=== PATIENT | female | born 1970 | race Caucasian/White ===

== ENCOUNTER 2016-11-11 19:48 | Inpatient (IN) ==
[2016-11-11 20:18] LABS: MANUAL DIFF NEEDED? NO
[2016-11-11 20:18] LABS: URINE CULTURE NEEDED? NO; URINE MICRO REVIEW NEEDED? NO; URINE SOURCE CLEAN CATCH
[2016-11-11] MEDS ORDERED: TYLENOL PO ONE (20:22)
[2016-11-11 20:23] LABS: BASO% 0.2 % (0.0-0.8); EOS# 0.05 X1000 (0.0-0.7); EOS% 0.4 % (0.0-10.0); HEMATOCRIT 35.5 % (37.0-47.0); HEMOGLOBIN 11.9 g/dL (12.0-16.0); IMM GRAN# 0.09 X1000 (0.0-0.04); IMM GRAN% 0.7 % (0.0-0.5); LYMPH# 1.36 X1000 (1.2-3.4); LYMPH% 10.2 % (20.5-51.1); MCH 26.6 PG (27-31); MCHC 33.5 g/dL (33-37); MCV 79.4 FL (81-99); MONO# 1.22 X1000 (0.11-0.59); MONO% 9.1 % (1.7-9.3); MPV 8.5 FL (7.4-10.4); NEUT% 79.4 % (42.2-75.2); PLT 587 X1000 (130-400); RBC 4.47 XMIL (4.2-5.4)
[2016-11-11 20:27] LABS: BILIRUBIN URINE NEGATIVE (NEGATIVE); BLOOD URINE NEGATIVE (NEGATIVE); COLOR YELLOW; GLUCOSE URINE NEGATIVE (NEGATIVE); LEUKOCYTES URINE NEGATIVE (NEGATIVE); NITRITE URINE NEGATIVE (NEGATIVE); PROTEIN URINE NEGATIVE (NEGATIVE); SP GRAVITY URINE 1.007; TURBIDITY URINE CLEAR (CLEAR); UROBILINOGEN URINE NORMAL (NORMAL)
[2016-11-11 20:28] LABS: UR EPITHELIAL CELLS <10 /HPF (<10); URINE BACTERIA NEGATIVE /HPF; URINE RBC <10 /HPF (<10); URINE WBC <10 /HPF (<10)
[2016-11-11 20:47] LABS: AGAP 16; ALBUMIN 3.7 g/dL (3.5-5.0); ALKALINE PHOSPHATASE 70 U/L (32-104); BUN 8 mg/dL (8-22); CALCIUM 9.1 mg/dL (8.8-10.2); CHLORIDE 93 mmol/L (98-107); COSMO 269; GOT 9 U/L (10-30); GPT 14 U/L (10-36); SODIUM 133 mmol/L (136-145); TCO2 24 mmol/L (25-35); TOTAL BILIRUBIN 0.33 mg/dL (0.20-1.00); TOTAL PROTEIN 7.8 g/dL (6.3-8.3)
--- NOTE | 2016-11-11 21:00 | PROVIDER DOCUMENTATION ---
This chart was entered by Vi Davila Scribe, acting as scribe for Esau Contreras PA. HPI-Abdominal Pain/GI Problem - General Chief Complaint: Post Op Complaint Stated Complaint: POST OP COMPLAINT, FEVER Time Seen by Provider: 11/11/16 20:22 Source: patient Allergies/Adverse Reactions: Patient Allergies Allergy/AdvReac Type Severity Reaction Status Date / Time oxycodone HCl * Allergy ITCHING Verified 11/11/16 20:03 [From Percocet] Home Medications: Home Medication List Medication Instructions Recorded Confirmed Last Taken Type LISINOpril [Prinivil] 5 mg PO DAILY 05/20/16 11/11/16 11/11/16 History Metformin [Glucophage] 500 mg PO BID CC 10/28/16 11/11/16 11/11/16 History Multivitamin with Minerals [One 1 each PO DAILY 10/28/16 11/11/16 11/11/16 History Daily Adults] Hydrocodone/Acetaminophen 1 tab PO Q6HR PRN 11/11/16 11/11/16 11/11/16 History [Hydrocodon-Acetaminophn 10-325] Sulfamethoxazole/Trimethoprim 1 tab PO BID 11/11/16 11/11/16 11/11/16 History [Bactrim Ds Tablet] - History of Present Illness-ABD Nature of Presenting Problems: 46 Y/O F presents to ED with Post Op C/o. Pt presents to ED with ABD pain, due to a ventral hernia surgery on November 01 which was done by . Pt had to drain the fluid this past Friday. States chills, hot, N, poor appetite. States fever 102.7 noted today. Pt c/o of N denies V/D. Abdominal Pain Onset Location: reports: RUQ, RLQ Pain Radiation: reports: no radiation Quality of Pain: reports: aching Severity in ED: reports: moderate Onset/Duration: reports: this evening Timing: reports: still present Activities at Onset: reports: none Associated Symptoms: reports: fatigue, fever/chills, nausea, weakness. denies: cough, diarrhea, headaches, sinus congestion/drainage Review of Systems - Adult - REVIEW OF SYSTEMS - ADULT Constitutional: reports: chills, fever Eyes: reports: no symptoms reported Ears, Nose, Mouth & Throat: reports: no symptoms reported Cardiovascular: denies: chest pain Respiratory: denies: cough, shortness of breath Gastrointestinal: reports: abdominal pain, nausea, poor appetite. denies: diarrhea, vomiting Genitourinary: reports: no symptoms reported Musculoskeletal: reports: no symptoms reported Integumentary: reports: no symptoms reported Neurological: reports: no symptoms reported Psychiatric: reports: no symptoms reported Endocrine: reports: no symptoms reported Hematologic/Lymphatic: reports: no symptoms reported Allergic/Immunologic: reports: no symptoms reported All Other Systems: Reviewed and Negative Past History - Adult - PAST MEDICAL HISTORY-ADULT Review of Records: reports: Old Records Reviewed, Nursing Assessment Review, Medications Reviewed, Social history reviewed & non-contributory. Physical Exam-General - CONSTITUTIONAL General Appearance: alert, no apparent distress, obese - EYES Eyes: PERRL/EOMI, pink conjunctivae - HEAD, EARS, NOSE, MOUTH & THROAT HENMT: normocephalic/atraumatic, moist mucous membranes, normal ENT inspection, TMs normal, pharynx normal - NECK Neck: non-tender, full range of motion, supple, normal inspection - RESPIRATORY Respiratory: chest non-tender, lungs clear, normal breath sounds - CARDIOVASCULAR Cardiovascular: normal peripheral pulses, regular rate, rhythm - GASTROINTESTINAL (ABDOMEN) Abdominal Exam: tenderness (rlq), mass (RLQ (Firm)), other (incision noted to LLQ, Clear drainage from lower staple in lower ABD) - LYMPHATIC Lymphatic: no adenopathy - MUSCULOSKELETAL Extremity: normal range of motion, normal gait - SKIN Integumentary: normal color, normal turgor - PSYCHIATRIC Psych/Mental Status: normal mood/affect, normal thought content, normal thought process, oriented x 3 Progress - PLAN OF CARE/RESULTS Progress/Plan/Lab Results: Vital Signs - 8 hr 11/11/16 20:06 Temperature 100.3 F H Pulse Rate 139 H Respiratory Rate 19 Blood Pressure 155/90 O2 Sat by Pulse Oximetry 98 Laboratory Results - last 24 hr 11/11/16 11/11/16 20:06 20:13 WBC 13.34 H RBC 4.47 Hgb 11.9 L Hct 35.5 L MCV 79.4 L MCH 26.6 L MCHC 33.5 RDW Std Deviation 14.4 Plt Count 587 H MPV 8.5 Immature Gran % (Auto) 0.7 H Neut % (Auto) 79.4 H Lymph % (Auto) 10.[address] [place] % (Auto) 9.1 Eos % (Auto) 0.4 Baso % (Auto) 0.2 Immature Gran # (Auto) 0.09 H Neut # (Auto) 10.59 H Lymph # (Auto) 1.36 [place] # (Auto) 1.22 H Eos # (Auto) 0.05 Baso # (Auto) 0.03 Urine Source CLEAN CATCH Urine Color YELLOW Urine Turbidity CLEAR Urine pH 7.0 Ur Specific [place] 1.007 Urine Protein NEGATIVE Ur Glucose (Stick) NEGATIVE Ur Ketones (Stick) NEGATIVE Urine Blood NEGATIVE Urine Nitrite NEGATIVE Urine Bilirubin NEGATIVE Urobilinogen Dipstick NORMAL Urine Leukocytes NEGATIVE Urine WBC (Auto) <10 Urine RBC (Auto) <10 U Epithel Cells (Auto) <10 Urine Bacteria (Auto) NEGATIVE Orders Category Date Time Status CHEST-2 VIEWS [RAD] Stat Exams 11/11/16 20:[address] ABD/PELVIS W/ IV CONT ONLY [CT] Stat Exams 11/11/16 20:20 Ordered ACETAMINOPHEN [TDM] Stat Lab 11/11/16 20:06 Received CBC WITH ELECTRONIC DIFF [HEME] Stat Lab 11/11/16 20:06 Completed CMP [COMPREHENSIVE METABOLIC PANEL] [CHEM] Stat Lab 11/11/16 20:06 Received URINALYSIS W/POSS RFLX CULT [URINALYSIS] Stat Lab 11/11/16 20:13 Completed Acetaminophen [Tylenol] Med 11/11/16 20:22 Discontinued 650 mg PO NOW ONE Result Diagrams: 11/11/16 20:06 11/11/16 20:06 - CT/MRI 1 CT Study: Abdomen, Pelvis Impression: Abnormal (Large abscess in ant abd - radiology) - CONSULTS/PCP/HOSPITALIST Notification #1 *Consult/PCP/Hospitalist*: Dr. Hoang (General Surgery) Time Discussed: 22:18 Reason/Comments: Admit to Dr. Hernandez's service. Give Zosyn and normal saline. Departure - Departure Time of Disposition Decision: 22:17 DIAGNOSIS: Subcutaneous abscess Qualifiers: Site of cutaneous abscess: trunk Site of cutaneous abscess of trunk: abdominal wall Qualified Code(s): L02.211 - Cutaneous abscess of abdominal wall Disposition: ADMITTED INPATIENT 09 Certified Medical Emergency: Emergent Condition: Stable Referrals and Follow-Ups: None,PCP [Primary Care Provider] - - Critical Care Note This patient required my direct & personal management of CC.: No Attestation - Physician/ KEVIN Attestation Patient care was provided by Advanced Practice Provider:: Yes Advanced Practice Provider:: Esau Contreras Advanced Practice Provider documentation review:: The Mid-level provider documentation, treatment plan and medical decision making was reviewed by the physician who agrees with all treatment and medical decision making by the MLP. This chart was documented by the indicated scribe, (Vi Davila Scribe) and accurately reflects the services I performed and decisions made by me, Esau Contreras PA, as attested by the provider's signature.
--- NOTE | 2016-11-11 21:01 | Diag Imaging Result Doc PS360 ---
EXAM: CHEST-2 VIEWS HISTORY: POST OP FEVER TECHNIQUE: COMPARISON: None. FINDINGS: The lungs are well expanded. The heart is not enlarged. The vessels are not distended. There are no infiltrates. No pleural effusions. IMPRESSION: No acute abnormality. Electronically signed by Luan Guadalupe 11/11/2016 8:59 PM
--- NOTE | 2016-11-11 21:48 | Diag Imaging Result Doc PS360 ---
EXAM: CT ABD/PELVIS W/ IV CONT ONLY HISTORY: P OP FEVER ABD PAIN. TECHNIQUE: Dose reduction protocol COMPARISON: 10/04/2016 FINDINGS: There is fatty infiltration of the liver. Normal spleen, pancreas, gallbladder, and adrenal glands. Normal enhancement of the kidneys. No hydronephrosis. Normal aorta. No bowel obstruction. Normal appendix. The urinary bladder is not distended. The uterus is been removed. There are midline skin misha. There is a large mixed density subcutaneous area anterior to the pelvis eccentric on the right measuring 7.8 x 19.3 x 11.5 cm. A small amount of air is scattered throughout. The majority of this is filled with fluid. There are internal septations. IMPRESSION: Large subcutaneous abscess or hematoma anterior to the pelvis. Electronically signed by Luan Guadalupe 11/11/2016 9:45 PM
[2016-11-11] MEDS ORDERED: ZOSYN 3.375 GM/NS 3.375 GM/50 ML IVPB IV ONE (22:14)
[2016-11-11] MEDS ORDERED: NS 1,000 ML IV ONE ×2 (22:14→22:19)
[2016-11-11] MEDS ORDERED: MORPHINE IV PRN (22:19)
[2016-11-11] MEDS ORDERED: MORPHINE ONE (22:35)
[2016-11-11] MEDS: ZOFRAN IV PRN (22:41)
[2016-11-12] MEDS: MORPHINE IV PRN ×4 (02:55→15:33)
[2016-11-12 05:39] LABS: HEMATOCRIT 32.2 % (37.0-47.0); HEMOGLOBIN 10.4 g/dL (12.0-16.0); MCH 26.7 PG (27-31); MCHC 32.3 g/dL (33-37); MCV 82.6 FL (81-99); MPV 8.5 FL (7.4-10.4); RBC 3.9 XMIL (4.2-5.4)
[2016-11-12] MEDS: ZOSYN 3.375 GM/NS 3.375 GM/50 ML IVPB IV SCH ×4 (06:36→20:33)
--- NOTE | 2016-11-12 07:09 | PROGRESS NOTE ---
DATE: 11/12/2016 SUBJECTIVE: Discussed her case with Dr. Hoang who admitted her early this morning. She is feeling okay. She is having some chills. OBJECTIVE: Vital Signs: Patient is currently with a temperature 99.8 degrees, pulse is mildly tachycardic at 110, respiratory rate nonlabored at 20, blood pressure 121/57, O2 saturation 96% on 2 L nasal cannula. General: No acute distress but appears uncomfortable. Cardiovascular: Regular rate and rhythm but mildly tachycardic. Lungs: Grossly clear. Abdomen: Soft. Incision is healing well. There is some warmth over her right lower quadrant. No erythema on the skin. LABORATORIES AND IMAGING: CT scan independently reviewed and radiology report reviewed. Laboratory white blood cell count 11. ASSESSMENT/PLAN: A 46-year-old female, status post open recurrent ventral hernia repair with mesh now with subcutaneous fluid collection. Subcutaneous fluid collection. This time we will ask interventional radiology to place a drain. We will send for culture. Hopefully, we can avoid having to reoperate. cc: Mateo Hernandez MD
--- NOTE | 2016-11-12 07:17 | HISTORY AND PHYSICAL ---
Ms. Laura Simpson is a 46-year-old white female patient of Dr. Mateo Hernandez who is postop day 10 from an open repair of recurrent incarcerated incisional hernia using mesh by Dr. Mateo Hernandez on 11/01/2016. She did well postoperatively and was sent home with a DIANE drain in place. She has seen Dr. Hernandez as an outpatient. That DIANE drain has been removed I think last week. She has developed increasing swelling right side of abdomen and also fever and chills. I spoke with her by phone yesterday and called in some Bactrim but she continued to feel poorly and presented to the emergency department. She was evaluated in our emergency department which included a CT scan of her abdomen and pelvis which documented a fluid collection in the soft tissue right side of her lower midline incision. She was admitted, placed on IV antibiotics and was seen this morning by Dr. Hernandez. PAST MEDICAL HISTORY: 1. Incisional hernia. 2. Obesity. 3. Pre diabetes. 4. Bilateral oophorectomy. 5. Previous hernia repair. MEDICATIONS: Lisinopril. ALLERGIES: Percocet. SOCIAL HISTORY: She does not smoke or drink alcohol. REVIEW OF SYSTEMS: A 14-point review of systems was performed and was essentially negative except for the history of present illness. PHYSICAL EXAMINATION: GENERAL: Ms. Laura Simpsno is a middle aged, white female, overweight in no acute distress. Awake, cooperative. She wears glasses. No jaundice. No oral lesions. No cervical or supraclavicular lymphadenopathy. HEART: Has a regular rate. LUNGS: Clear to auscultation and percussion bilaterally. She has a lower midline incision with clips. She had a fullness which was warm right side of abdomen and it seemed to be in the subcutaneous tissue, slightly tender. There was no drainage from her lower midline incision. She had no costovertebral tenderness. RECTAL/VAGINAL: Exams were not performed. She does have palpable peripheral pulses. No peripheral edema. NEUROLOGICAL: She is alert and oriented x3 and appropriate. DIAGNOSTIC DATA: Her white blood cell count was 13. CT scan as above. IMPRESSION: Soft tissue infection, status post repair of a recurrent incisional hernia using mesh. PLAN: Dr. Hernandez has already evaluated the patient and will plan to drain this fluid collection. She is on IV Zosyn at this time. cc: MD Mateo Cantu MD
[2016-11-12] MEDS: TYLENOL PO PRN ×2 (09:31→20:33)
--- NOTE | 2016-11-12 16:56 | Diag Imaging Result Doc PS360 ---
EXAM: CT GUIDE ABD DRAINAGE W/CATH INDICATION: Subcutaneous Fluid collection COMPARISON: 11/11/2016 FINDINGS: Risks, benefits, and alternatives were discussed with the patient and informed consent was obtained. The patient was placed in a supine position and was prepped and draped in sterile fashion. Using CT guidance, a 12-Ukrainian pigtail drainage catheter was inserted into the subcutaneous thick-walled fluid collection at the ventral abdominal wall on the right that was seen on the previous study. It was secured with a catheter dressing. Red-tinged serosanguineous fluid was aspirated. A sample was sent for laboratory analysis. There were no known complications. IMPRESSION: Technically successful CT-guided right subcutaneous abdominal fluid collection drainage and catheter placement. Electronically signed by Esau Burrell 11/12/2016 4:53 PM
[2016-11-13] MEDS: ZOSYN 3.375 GM/NS 3.375 GM/50 ML IVPB IV SCH ×4 (02:37→20:48)
[2016-11-13] MEDS: ZOFRAN IV PRN ×3 (02:37→19:03)
[2016-11-13] MEDS: TYLENOL PO PRN ×3 (04:12→19:03)
[2016-11-13] MEDS ORDERED: NORCO-10 PO PRN (05:35)
--- NOTE | 2016-11-13 06:03 | PROGRESS NOTE ---
DATE: 11/13/2016 SUBJECTIVE: Patient doing okay. She had a CT-guided drain placed yesterday and they drained out at least 500 of serosanguineous fluid. Cultures are still pending. OBJECTIVE: Vital Signs: Patient is currently afebrile. She has a mild tachycardia but otherwise her vital signs have been stable. General Examination: No acute distress. Cardiovascular: Mild tachycardia. Lungs: Grossly clear. Abdomen: Soft, appropriately tender. Drain in place with serosanguineous output. Laboratory: None this morning. Microbiology pending. ASSESSMENT AND PLAN: A 46-year-old, female with likely seroma, status post ventral hernia repair. Seroma. At this time, we will keep Reyes-Man drain in place and monitor for the next 24 hours. We will await final cultures. We will continue to monitor closely. cc: Mateo Hernandez MD
[2016-11-13] MEDS: THERA M PLUS PO SCH (08:35)
[2016-11-13] MEDS: PRINIVIL PO SCH (08:35)
[2016-11-13] MEDS: GLUCOPHAGE PO SCH ×2 (08:36→16:14)
[2016-11-14] MEDS: TYLENOL PO PRN ×2 (02:19→09:53)
[2016-11-14] MEDS: ZOSYN 3.375 GM/NS 3.375 GM/50 ML IVPB IV SCH (02:19)
--- NOTE | 2016-11-14 06:13 | PROGRESS NOTE ---
DATE: 11/14/2016 SUBJECTIVE: Patient is doing well and feels better today. OBJECTIVE: Vital Signs: Patient is currently afebrile. Her vital signs were stable. DIANE drain had 130 mL out and recorded in the last 24 hours. It looks serosanguineous. General: No acute distress. Cardiovascular: Regular rate and rhythm. Lungs: Grossly clear. Abdomen: Soft, appropriately tender. DIANE drain in place with serosanguineous output. Abdominal binder in place. ASSESSMENT AND PLAN: A 46-year-old female with seroma status post ventral hernia repair. Seroma. At this time, patient does have gram-positive cocci grown from the culture. We will restart her on Bactrim and stop her Zosyn. Speciation has not occurred yet. She has had almost 700 out from the seroma drainage. At this time, we will get a CT scan to evaluate if the fluid is still there. I suspect she has just a seroma that may be mildly contaminated. If there is still fluid, we will consider to discharge the patient with a drain. If no fluid present, may consider removing the drain. Regardless, the patient to potentially go home later today after CT scan cc: Mateo Hernandez MD
[2016-11-14 07:55] VITALS: BP 131/74
[2016-11-14] MEDS ORDERED: SEPTRA DS PO SCH (09:00)
--- NOTE | 2016-11-14 09:12 | Diag Imaging Result Doc PS360 ---
ABDOMEN/PELVIS W/O CONTRAST - 11/14/2016 INDICATION: follow up drainage of seroma TECHNIQUE: A CT dose reduction protocol was used. COMPARISON: 11/12/2016 FINDINGS: There has been decrease in size of the thick-walled, fluid collection at the right side of the pelvis and soft tissues. This now measures 16 x 6.8 cm. Previously this measured about 20.5 x 9 cm. There is still a drainage catheter in good position within the cavity. No new fluid collections or abnormalities. No radiodense renal stones. No bowel obstruction or inflammation. Urinary bladder and rectum are normal. IMPRESSION: Decrease in size of the fluid cavity at the anterior right pelvic body tissue. There is still a drainage catheter within this collection. Electronically signed by Jose Alberto Avila 11/14/2016 9:10 AM
[2016-11-14] MEDS: PRINIVIL PO SCH (09:52)
[2016-11-14] MEDS: THERA M PLUS PO SCH (09:53)
[2016-11-14] MEDS: ZOFRAN IV PRN (09:53)
[2016-11-14] MEDS: GLUCOPHAGE PO SCH (10:04)
--- NOTE | 2016-11-19 20:49 | DISCHARGE SUMMARY ---
ADMISSION DATE: 11/12/2016 DISCHARGE DATE: 11/14/2016 ADMITTING DIAGNOSIS: Seroma status post ventral hernia repair. DISCHARGE DIAGNOSIS: Seroma status post ventral hernia repair. ADMITTING PHYSICIAN: Mateo Hernandez MD. CONSULTATIONS: None. PROCEDURES: Patient underwent CT-guided drainage of abdominal fluid on 11/12/2016. BRIEF HISTORY AND HOSPITAL COURSE: The patient is a 46-year-old, female known to me who had a ventral hernia repair. The postoperative period was initially uncomplicated. She had a drain that was removed in the office. She then developed fever and came into the emergency department with a seroma at her previous hernia site. She was admitted and started on IV antibiotics. She had this area drained by CT guidance. She improved clinically. She drained a significant amount of fluid from the seroma, therefore, we elected to discharge her with a drain in place. We also elected to discharge her with antibiotics. On the day of discharge she was ambulating, tolerating p.o., having no fevers and was doing well clinically. DISCHARGE CONDITION: Stable. DISPOSITION: Home. FOLLOWUP: Patient told to follow up me in 1 week. MEDICATIONS: Patient was given a prescription for Bactrim. cc: Mateo Hernandez MD
== END 2016-11-14 11:11 | disposition home or self-care (01) ==
LOC: ED 19:48 → 4N 22:44
PROVIDERS: ADMIT Surgery; ATTEND Surgery